=== PATIENT | male | born 1975 | race Caucasian/White ===

== ENCOUNTER 2019-06-09 20:55 | Emergency (ER) | payer BC ==
[~2019-06-09] VITALS: Ht 175.3 cm; Wt 98.9 kg
[2019-06-09 21:46] LABS: BASOPHILS # (AUTO) 0.1 (0.0-0.1); BASOPHILS % 1.1 % (0.0-1.0); EOSINOPHILS # (AUTO) 0.2 (0.0-0.4); EOSINOPHILS % 1.5 % (0.0-6.0); HEMATOCRIT 45.3 % (38.2-49.6); LYMPHOCYTES # (AUTO) 1.4 (1.0-3.2); LYMPHOCYTES % 11.1 % (18.0-39.1); MEAN CORPUSCULAR HEMOGLOBIN 28.3 pg (28-32); MEAN CORPUSCULAR HGB CONC 33.1 g/dL (31-35); MEAN CORPUSCULAR VOLUME 85.5 fL (81-99); MONOCYTES # (AUTO) 0.8 (0.2-0.8); MONOCYTES % 5.9 % (4.4-11.3); NEUTROPHILS # (AUTO) 10.4 (2.1-6.9); NEUTROPHILS % 79.9 % (38.7-80.0); PLATELET COUNT 703 x10e3/uL (140-360); RED CELL DISTRIBUTION WIDTH 13.4 % (11.7-14.4)
[2019-06-09 21:55] LABS: INR 1.11; PROTHROMBIN TIME 14.8 seconds (11.9-14.5)
[2019-06-09 21:56] LABS: PARTIAL THROMBOPLASTIN TIME 35.6 seconds (23.8-35.5)
[2019-06-09 22:03] LABS: ALANINE AMINOTRANSFERASE 24 IU/L (0-55); ALBUMIN 3.7 g/dL (3.5-5.0); ALBUMIN/GLOBULIN RATIO 1.3 (0.8-2.0); ALKALINE PHOSPHATASE 43 IU/L (40-150); ANION GAP 13.6 mmol/L (8-16); BLOOD UREA NITROGEN 20 mg/dL (7-26); BUN/CREATININE RATIO 23 (6-25); CALCIUM 9.2 mg/dL (8.4-10.2); CARBON DIOXIDE 26 mmol/L (22-29); CHLORIDE 104 mmol/L (98-107); CREATINE KINASE 45 IU/L (30-200); CREATININE, SERUM 0.88 mg/dL (0.72-1.25); EST GLOMERULAR FILTRATION RATE > 60 ML/MIN (60-); GLUCOSE 110 mg/dL (74-118); POTASSIUM 3.6 mmol/L (3.5-5.1); SODIUM 140 mmol/L (136-145)
--- NOTE | 2019-06-09 22:13 | Diagnostic Imaging Report ---
EXAMINATION: CHEST SINGLE (PORTABLE) INDICATION: SOB. COMPARISON: None FINDINGS: TUBES and LINES: None. LUNGS: Lungs are well inflated. There is no evidence of pneumonia or pulmonary edema. PLEURA: No pleural effusion or pneumothorax. HEART AND MEDIASTINUM: The cardiomediastinal silhouette is unremarkable. BONES AND SOFT TISSUES: No acute osseous abnormality. UPPER ABDOMEN: No free air under the diaphragm. IMPRESSION: No acute radiographic abnormality. Signed by: Dr. Ravin Lagunas MD on 06/09/2019 10:09 PM
[2019-06-09 22:24] LABS: THYROID STIMULATING HORMONE 2.462 uIU/mL (0.350-4.940)
== END 2019-06-10 00:02 | disposition home or self-care (01) ==
LOC: ER 20:55
DX: R00.2 Palpitations (principal); I47.1 Supraventricular tachycardia; I10 Essential (primary) hypertension; F41.9 Anxiety disorder, unspecified
CPT/HCPCS: 36415; 71045; 80053; 82550; 82553; 84436; 84443; 84479; 84484; 85025; 85610; 85730; 93005; 99284

== ENCOUNTER 2019-10-08 12:20 | Inpatient (IN) | payer SELFPAY ==
[~2019-10-08] VITALS: Ht 177.8 cm; Wt 93.4 kg
--- OUTSIDE RECORDS SUMMARY | 2019-10-08 12:23 | XMS REPORT ---
Author Author [facility] Address Unknown Phone Unavailable Care Team Providers [employer] Custodian Name Role Phone Rachel LILLY Unavailable Unavailable Problems This patient has no known problems. Allergies, Adverse Reactions, Alerts This patient has no known allergies or adverse reactions. Medications This patient has no known medications. Results Test Description Test Time Test Comments Text Results Atomic Results Result Comments CHEST SINGLE (PORTABLE) 2019-06-09 22:08:00 [place] [address] Patient Name: MARLEEN FERNANDEZ MR #: [id number] : 1975 Age/Sex: 44/M Req #: [id number] [facility] Physician: Ordered by: ERICK LILLY MD Report #: [id number] Location: ER Room/Bed: Procedure: [id number] DX/CHEST SINGLE (PORTABLE) Exam Date: 06/09/19 Exam Time: 2135 REPORT STATUS: Signed EXAMINATION: CHEST SINGLE (PORTABLE) INDICATION: SOB. COMPARISON: None FINDINGS: TUBES and LINES: None. LUNGS: Lungs are well inflated. There is no evidence of pneumonia or pulmonary edema. PLEURA: No pleural effusion or pneumothorax. HEART AND MEDIASTINUM: The cardiomediastinal silhouette is unremarkable. BONES AND SOFT TISSUES: No acute osseous abnormality. UPPER ABDOMEN: No free air under the diaphragm. IMPRESSION: No acute radiographic abnormality. Signed by: Dr. Wendy Akbar MD on 06/09/2019 10:09 PM Dictated By: WENDY AKBAR MD 08 Transcribed By: RUBEN on 06/09/192208 COPY TO: ERICK LILLY MD
[2019-10-08] MEDS ORDERED: SODIUM CHLORIDE 0.9% 1000ML 1,000 ML IV STA (12:30)
[2019-10-08 12:59] LABS: BASOPHILS # (AUTO) 0.1 (0.0-0.1); EOSINOPHILS # (AUTO) 0.1 (0.0-0.4); EOSINOPHILS % 0.8 % (0.0-6.0); HEMATOCRIT 49.9 % (38.2-49.6); HEMOGLOBIN 16.6 g/dL (14.0-18.0); LYMPHOCYTES # (AUTO) 1.9 (1.0-3.2); LYMPHOCYTES % 15.6 % (18.0-39.1); MEAN CORPUSCULAR HEMOGLOBIN 28.2 pg (28-32); MEAN CORPUSCULAR HGB CONC 33.3 g/dL (31-35); MEAN CORPUSCULAR VOLUME 84.9 fL (81-99); MONOCYTES # (AUTO) 0.6 (0.2-0.8); MONOCYTES % 4.9 % (4.4-11.3); NEUTROPHILS # (AUTO) 9.4 (2.1-6.9); NEUTROPHILS % 77.4 % (38.7-80.0); PLATELET COUNT 717 x10e3/uL (140-360); RED BLOOD COUNT 5.88 x10e6/uL (4.3-5.7); RED CELL DISTRIBUTION WIDTH 13.4 % (11.7-14.4)
[2019-10-08] MEDS ORDERED: PIPER-TAZ 3.375 GM 50 ML IV SCH (13:00)
[2019-10-08] MEDS ORDERED: METRONIDAZOLE 500MG/NS 100ML 100 ML IV SCH (13:00)
--- NOTE | 2019-10-08 13:26 | Diagnostic Imaging Report ---
EXAMINATION: CHEST SINGLE (NOT PORTABLE) INDICATION: Abdominal pain COMPARISON: None FINDINGS: LINES/TUBES:None LUNGS:The lungs are well-inflated. No focal consolidation or pulmonary edema. PLEURA:No pleural effusion or pneumothorax. MEDIASTINUM:The cardiomediastinal silhouette appears normal in size and shape. BONES/SOFT TISSUES:No acute osseous injury. ABDOMEN:No free air under the diaphragm. IMPRESSION: No focal pneumonia or pulmonary edema. Signed by: Anna Bowman MD on 10/08/2019 1:23 PM
[2019-10-08 13:30] LABS: CLARITY,URINE CLEAR (CLEAR); COLOR,URINE YELLOW (YELLOW)
[2019-10-08 13:31] LABS: BACTERIA,URINE RARE /HPF; BILIRUBIN,URINE NEGATIVE (NEGATIVE); EPITHELIAL CELLS,URINE FEW /LPF; KETONES,URINE NEGATIVE (NEGATIVE); LEUKOCYTE ESTERASE ,URINE NEGATIVE (NEGATIVE); NITRITE,URINE NEGATIVE (NEGATIVE); PROTEIN,URINE DIPSTICK NEGATIVE (NEGATIVE); RBC,URINE 0-5 /HPF (0-5); URINE UROBILINOGEN 0.2 mg/dL (0.2 - 1); WBC,URINE (MAN) 0-5 /HPF (0-5)
[2019-10-08 13:31] LABS: INR 1.1; PARTIAL THROMBOPLASTIN TIME 36.5 seconds (23.8-35.5); PROTHROMBIN TIME 14.9 seconds (11.9-14.5)
[2019-10-08 13:32] LABS: ALANINE AMINOTRANSFERASE 19 IU/L (0-55); ALBUMIN 3.8 g/dL (3.5-5.0); ALBUMIN/GLOBULIN RATIO 1.2 (0.8-2.0); ALKALINE PHOSPHATASE 52 IU/L (40-150); ANION GAP 12.6 mmol/L (8-16); BLOOD UREA NITROGEN 12 mg/dL (7-26); BUN/CREATININE RATIO 15 (6-25); CALCIUM 8.7 mg/dL (8.4-10.2); CARBON DIOXIDE 30 mmol/L (22-29); CHLORIDE 101 mmol/L (98-107); EST GLOMERULAR FILTRATION RATE > 60 ML/MIN (60-); GLUCOSE 97 mg/dL (74-118); LIPASE 25 U/L (8-78); POTASSIUM 3.6 mmol/L (3.5-5.1); SODIUM 140 mmol/L (136-145)
[2019-10-08] MEDS ORDERED: SODIUM CHLORIDE 0.9% 1000ML 1,000 ML IV SCH (13:57)
[2019-10-08] MEDS: MORPHINE SULFATE INJ 4 MG/ML INJ 1ML IV PRN ×2 (14:58→21:24)
[2019-10-08] MEDS: ONDANSETRON HCL INJ 2MG/ML 2ML 2 MG/ML VIAL IV PRN ×2 (14:58→21:24)
--- NOTE | 2019-10-08 15:23 | Consultation ---
DATE OF CONSULTATION: 10/08/2019 REASON FOR CONSULTATION: Appendicitis. DESCRIPTION OF CONSULTATION: The patient is a pleasant, but anxious 44-year-old male who started feeling sick about a week ago with some ill-defined lower abdominal pain, which apparently became more pronounced this morning. The patient went to his primary care physician or a CT scan that revealed an inflamed appendix with small amounts of fluid around the area of the appendix in the cecal region. There was no free air. The patient denied any fever or vomiting. He had a loose bowel movement today. He had no symptoms. He is comfortable. PAST MEDICAL HISTORY: Significant for hypertension. He is taking propranolol. e states that he has lost significant amounts of weight on adiet and he used to weight 300 pounds about a year ago, now he is down to 218 with a BMI of 32.2. The PAST SURGICAL HISTORY: Previous surgeries include an undescended testicle and tonsillectomy. The patient does not drink. Does not smoke. ALLERGIES: HAS NO KNOWN ALLERGIES. REVIEW OF SYSTEMS: Significant for what has been stated. PHYSICAL EXAMINATION: GENERAL: Reveals a 44-year-old male in no acute distress. VITAL SIGNS: Temperature is 98.8, pulse 83, blood pressure 160/103, and respiratory rate 18. HEENT: Reveals a normocephalic head. Supple neck. LUNGS: Clear. HEART: Reveals regular sinus rhythm. ABDOMEN: Reveals a soft abdomen. There is some mild tenderness in the lower side of the abdomen, but there is no rebound. No obviously palpable mass is palpated. Of note is the fact that this patient was examined in a reclining chair in the emergency room because there were no beds available at the time of my examination, where I could put the patient to examine and he was examined in the interview room of the emergency room. EXTREMITIES: Reveal no clubbing, cyanosis, or edema. LABORATORY DATA: [place] [address] with a hematocrit of 50, platelets are 100,000. Chemistries are normal. Coag profile revealed a PTT of 14.9, aPTT of 36 with an INR of 1.1. ASSESSMENT: A 44-year-old male with a week history of abdominal pain with a CT scan consistent with appendicitis with focal perforation. I have reviewed the outside films with our Radiologist here and it appears that he does have an inflamed large appendix with some fluid around the area, but no free perforation or pneumoperitoneum.No drainable collection is seen with [facility] redology staff review of foreign films PLAN: The plan is to admit the patient to the roomwhen is available to keep him n.p.o., give him hydration overnight, and intravenous antibiotics and proceed with surgery in a.m. I have discussed in detail with the patient and his the surgical plans, which include attempted diagnostic laparoscopy and we will attempt to perform laparoscopic appendectomy. If this is not successful, he will need an open appendectomy and/or laparotomy. They are aware that during the laparotomy for this type of appendicitis is always a possibility that we may have to do a colon resection on the right side. They will agree with the plans and the patient is agreeable to them. MD SCOTT Perez/SAFIA /[id number]
[2019-10-08] MEDS: LEVOFLOXACIN 500MG/D5W 100ML 100 ML IV SCH (15:30)
[2019-10-08] MEDS: D5NS/KCL 20MEQ 1,000 ML IV SCH ×2 (16:13→23:59)
[2019-10-08] MEDS ORDERED: NIFEDIPINE ER30 MG PO (16:35)
[2019-10-08] MEDS: PIPER-TAZ 3.375 GM 50 ML IV SCH (19:39)
[2019-10-08] MEDS: METRONIDAZOLE 500MG/NS 100ML 100 ML IV SCH (21:16)
[2019-10-08 22:50] VITALS: BP 149/85
--- NOTE | 2019-10-08 23:01 | NUR ---
Patient arrived to unit from ER. In stable condition, no s/s of distress at this time. VS stable. All safety measures in place. Family at bedside. Will continue to monitor
[2019-10-08 23:19] VITALS: BP 149/85
[2019-10-08 23:22] VITALS: BP 149/85
[2019-10-09] VITALS (7 sets, daily range): BP systolic 141–160; BP diastolic 85–93
[2019-10-09] MEDS: PIPER-TAZ 3.375 GM 50 ML IV SCH ×4 (01:55→20:37)
[2019-10-09] MEDS: METRONIDAZOLE 500MG/NS 100ML 100 ML IV SCH ×4 (03:24→21:51)
[2019-10-09 06:23] LABS: BASOPHILS # (AUTO) 0.1 (0.0-0.1); EOSINOPHILS # (AUTO) 0.3 (0.0-0.4); EOSINOPHILS % 2.3 % (0.0-6.0); HEMATOCRIT 45.4 % (38.2-49.6); HEMOGLOBIN 14.9 g/dL (14.0-18.0); LYMPHOCYTES # (AUTO) 1.8 (1.0-3.2); LYMPHOCYTES % 15.9 % (18.0-39.1); MEAN CORPUSCULAR HGB CONC 32.8 g/dL (31-35); MEAN CORPUSCULAR VOLUME 85.3 fL (81-99); MONOCYTES # (AUTO) 0.8 (0.2-0.8); MONOCYTES % 7.1 % (4.4-11.3); NEUTROPHILS # (AUTO) 8.3 (2.1-6.9); NEUTROPHILS % 73.4 % (38.7-80.0); PLATELET COUNT 546 x10e3/uL (140-360); RED BLOOD COUNT 5.32 x10e6/uL (4.3-5.7); RED CELL DISTRIBUTION WIDTH 13.5 % (11.7-14.4)
[2019-10-09 06:42] LABS: ANION GAP 9.1 mmol/L (8-16); BLOOD UREA NITROGEN 11 mg/dL (7-26); BUN/CREATININE RATIO 13 (6-25); CALCIUM 8.3 mg/dL (8.4-10.2); CARBON DIOXIDE 30 mmol/L (22-29); CHLORIDE 107 mmol/L (98-107); CREATININE, SERUM 0.86 mg/dL (0.72-1.25); EST GLOMERULAR FILTRATION RATE > 60 ML/MIN (60-); GLUCOSE 103 mg/dL (74-118); POTASSIUM 4.1 mmol/L (3.5-5.1); SODIUM 142 mmol/L (136-145)
--- NOTE | 2019-10-09 06:59 | NUR ---
Bedside report given to day nurse. Patient resting in bed, no s/s of distress or c/o pain at this time. All safety measures in place. Family at bedside.
--- NOTE | 2019-10-09 07:00 | NUR ---
bedside shift report received pt in stable condition, denies pain at this time, ivf infusing to l ac 18g no ss of infiltraton noted,updated on poc voiced understanding, call light in reach will continue to monitor.
--- NOTE | 2019-10-09 08:40 | NUR ---
GAVE PACKET OF INFORMATION WITH [employer] [employer] FOR ASSISTANCE WITH LOW TO NO INCOME TO PATIENT. RESOURCES THAT PATIENT MAY BE ABLE TO FOLLOW UP UPON DISCHARGE. PT EDUCATED ON EACH RESOURCE AND UNDERSTANDING HOW TO FOLLOW UP TO SEE IF QUALIFIED FOR EACH RESOURCE.
[2019-10-09] MEDS: D5NS/KCL 20MEQ 1,000 ML IV SCH ×3 (08:52→22:49)
[2019-10-09] MEDS ORDERED: BUPIVACAINE 0.25% 30ML SDV INJ ONE (09:30)
--- NOTE | 2019-10-09 09:30 | NUR ---
DOWN TO SX LEFT IN STABLE CONDITION.
[2019-10-09] MEDS ORDERED: ACETAMINOPHEN 1000 MG/100 ML IV PRN (13:45)
[2019-10-09] MEDS: ONDANSETRON HCL INJ 2MG/ML 2ML 2 MG/ML VIAL IV PRN (13:52)
[2019-10-09] MEDS ORDERED: ACETAMINOPHEN 1000 MG/100 ML IV ONE (13:59)
[2019-10-09] MEDS ORDERED: ROCURONIUM BROMIDE 10 MG/ML 5ML VIAL ONE (13:59)
[2019-10-09] MEDS ORDERED: ONDANSETRON HCL INJ 2MG/ML 2ML 2 MG/ML VIAL ONE (13:59)
[2019-10-09] MEDS ORDERED: LIDOCAINE HCL 2% JELLY 5 ML TUBE ONE (13:59)
[2019-10-09] MEDS ORDERED: PROPOFOL IV EMULSION 10 MG/ML 20 ML VIAL ONE (13:59)
[2019-10-09] MEDS ORDERED: NEOSTIGMINE 1 MG/ML 10ML VIAL ONE (13:59)
[2019-10-09] MEDS ORDERED: LIDOCAINE HCL 2% LOCAL INJ 5 ML SDV VIAL INJ ONE (13:59)
[2019-10-09] MEDS ORDERED: GLYCOPYRROLATE INJ 0.2 MG/ML VIAL ONE (13:59)
[2019-10-09] MEDS ORDERED: SEVOFLURANE INHAL SOLN 250 ML PEN BTL ONE (13:59)
[2019-10-09] MEDS ORDERED: FENTANYL CITRATE/PF 100MCG/2 ML INJ ONE ×2 (14:14→18:19)
--- NOTE | 2019-10-09 14:48 | Operative Report ---
DATE OF PROCEDURE: 10/09/2019 SURGEON: Fermín Bentley MD PREOPERATIVE DIAGNOSIS: Localized perforated appendicitis. POSTOPERATIVE DIAGNOSIS: Pending final path report. PROCEDURE PERFORMED: Attempted laparoscopic appendectomy converted t5p laparotomy Right hemicolectomy ANESTHESIA: General. ESTIMATED BLOOD LOSS: Minimal. DRAINS: None. COMPLICATIONS: None. INDICATION AND FINDINGS: A 44-year-old male, admitted, complaining of a week history of abdominal pain. The patient was seen by his primary care physician, Dr. Russell, who ordered a CT scan of the abdomen and that study showed an inflammatory process in the right lower quadrant. The appendix could not be seen, it was not clear what the source of the process while there was localized fluid collection in the area. The patient then subsequently was admitted to the hospital for further treatment after discussing the indications for surgery and the possibility of having to perform an open procedure including a bowel resection. The patient and his agreed and then we too laparoscopy and possible laparotomy. INTRAOPERATIVE FINDINGS: After he was placed under general anesthesia, there was a palpable mass in the right lower quadrant. An attempted laparoscopy was performed and revealed an inflammatory process in the right lower quadrant. The loop of distal terminal ileum was stuck to the mass, which occupied the cecum. We did not see a definite appendix in the area, which was also stuck to the lateral wall of the pelvis. After we attempted to mobilize the cecum, we identified the appendix, it became clear that this was not possible due to severity of the process and we decided to open up the patient. A tailor made incision was then made after we had localized the area of the cecum during laparoscopy and then we made a transverse right lower quadrant incision slightly inferior to the umbilicus that was where the process was located. We entered the abdomen through a muscle-splitting incision and then the terminal ileum ,cecum and mass were easily delivered into the wound as they had previously been mobilized during the laparoscopy, attempting to find the appendix. At this point, we decided that it was necessary to perform a right hemicolectomy and then we transected the ileum about 6 inches proximal to the mass and then the colon was mobilized and was transected in the area of the right colon inferior to the hepatic flexure. Both ends of the bowel were transected between TA-75 stapler and then the mesoappendix was handled with the EnSeal cautery instrument and the ileocolic vessels were then tied with 2-0 silk twice. After we detached the specimen, we then performed a [id number] functional end-to-end anastomosis by anastomosing the antimesenteric side of the small bowel to the right colon. The rent was then closed using firing of the TA-60 stapler, then the staple line was reinforced using 3-0 silk. Stitch was placed distal to the staple line to decrease tension. The anastomosis was patent wide. There was good blood flow and good color of the intestine. We copiously irrigated the right lower quadrant and then after the sponge and instrument count was correct, we placed the omentum over the anastomosis and then we closed the wounds in layers using 0 Vicryl for the peritoneum and internal oblique muscle and then the rectus sheath part of which had been opened as well as external oblique aponeurosis was closed using interrupted running #1 Vicryl. The wound irrigated. Bleeding points if any cauterized and the wound was closed in layers using for the subcutaneous tissue 2-0 chromic and 2-0 Vicryl for the subcutaneous fat. The skin was closed using mesfin in all ports except for the umbilical port that was closed using #0 Vicryl and then 3-0 silk. Sterile dressing was applied. The patient tolerated the procedure well, was taken to recovery room in stable condition. The patient's family was informed of the intraoperative findings. All questions were answered. MD SCOTT Perez/SAFIA /[id number] RUTH
[2019-10-09] MEDS: SODIUM CHLORIDE 0.9% 250ML IRRIG IR SCH ×3 (15:16→20:43)
[2019-10-09] MEDS: LEVOFLOXACIN 500MG/D5W 100ML 100 ML IV SCH (15:30)
--- NOTE | 2019-10-09 16:00 | NUR ---
BACK TO RM FROM SX, PT IN STABLE CONDITION, NG L NARE TO LCWS, DSG TO 5 TROCHAR SITES ON ABDOMEN C/D/I, TORRES TO GRAVITY WITH YELLOW URINE NOTED, DENIES PAIN AT THIS TIME, CALL LIGHT IN REACH WILL CONTINUE TO MONITOR
[2019-10-09] MEDS ORDERED: ARTIFICIAL TEARS (OPTH) 15 ML BTL OU PRN (17:00)
[2019-10-09] MEDS: MORPHINE SULFATE INJ 4 MG/ML INJ 1ML IV PRN (17:28)
[2019-10-09] MEDS ORDERED: MIDAZOLAM HCL 2 MG/2 ML VIAL ONE (18:19)
--- NOTE | 2019-10-09 19:18 | NUR ---
WALKING ROUNDS PERFORMED, RECEIVED PT LAYING SEMI FOWLERS IN BED, AAOX3, RR EVEN AND NON-LABORED, O2 BY NC AT 2L. NO S/SX OF DISTRESS NOTED. NGT TO (L) NARE CONNECTED TO LCS. LEFT PT LAYING SEMI FOWLERS IN BED, BED IN LOW LOCKED POSITION, SIDE RAILS UPX2, CALL LIGHT AND PHONE WITHIN REACH.
[2019-10-09] MEDS: TOBRAMYCIN/DEXAMETHASONE(OPTH) 5 ML BTL OP SCH (20:33)
[2019-10-10] VITALS (9 sets, daily range): BP systolic 158–173; BP diastolic 92–107
--- NOTE | 2019-10-10 01:22 | NUR ---
PT ASSISTED TO HARDBACK CHAIR. BED LINENS CHANGED. PT ASSISTED BACK TO BED. LEFT LAYING SEMI FOWLERS IN BED, BED IN LOW LOCKED POSITION, SIDE RAILS UPX2, CALL LIGHT AND PHONE WITHIN REACH.
[2019-10-10] MEDS: PIPER-TAZ 3.375 GM 50 ML IV SCH ×4 (02:11→20:18)
[2019-10-10] MEDS: SODIUM CHLORIDE 0.9% 250ML IRRIG IR SCH ×6 (02:11→20:23)
[2019-10-10] MEDS: D5NS/KCL 20MEQ 1,000 ML IV SCH (02:12)
[2019-10-10] MEDS: METRONIDAZOLE 500MG/NS 100ML 100 ML IV SCH ×4 (03:31→21:25)
--- NOTE | 2019-10-10 05:23 | NUR ---
NGT TUBE NOTED TO BE NO LONGER TAPED TO NOSE. NGT STILL IN SAME PLACE, REPLACED TAPE TO SECURE NGT IN PLACE. FLUSHED AIR INTO NGT AND AUSCULTATED BUBBLES BELOW THE STERNUM. WILL CONTINUE TO MONITOR NGT.
[2019-10-10] MEDS: ONDANSETRON HCL INJ 2MG/ML 2ML 2 MG/ML VIAL IV PRN (05:29)
[2019-10-10] MEDS: MORPHINE SULFATE INJ 4 MG/ML INJ 1ML IV PRN (06:08)
[2019-10-10 06:13] LABS: BASOPHILS # (AUTO) 0.1 (0.0-0.1); BASOPHILS % 0.9 % (0.0-1.0); EOSINOPHILS # (AUTO) 0.1 (0.0-0.4); EOSINOPHILS % 0.9 % (0.0-6.0); HEMATOCRIT 46.3 % (38.2-49.6); HEMOGLOBIN 15.1 g/dL (14.0-18.0); LYMPHOCYTES # (AUTO) 1.3 (1.0-3.2); MEAN CORPUSCULAR HEMOGLOBIN 27.7 pg (28-32); MEAN CORPUSCULAR HGB CONC 32.6 g/dL (31-35); MONOCYTES # (AUTO) 1.1 (0.2-0.8); MONOCYTES % 8.2 % (4.4-11.3); NEUTROPHILS # (AUTO) 11.2 (2.1-6.9); NEUTROPHILS % 80.6 % (38.7-80.0); PLATELET COUNT 690 x10e3/uL (140-360); RED BLOOD COUNT 5.45 x10e6/uL (4.3-5.7); RED CELL DISTRIBUTION WIDTH 13.4 % (11.7-14.4)
[2019-10-10 06:36] LABS: ANION GAP 9.9 mmol/L (8-16); BLOOD UREA NITROGEN 9 mg/dL (7-26); BUN/CREATININE RATIO 11 (6-25); CALCIUM 8.2 mg/dL (8.4-10.2); CARBON DIOXIDE 26 mmol/L (22-29); CHLORIDE 107 mmol/L (98-107); EST GLOMERULAR FILTRATION RATE > 60 ML/MIN (60-); POTASSIUM 3.9 mmol/L (3.5-5.1); SODIUM 139 mmol/L (136-145)
[2019-10-10 06:51] LABS: GLUCOSE 150 mg/dL (74-118)
[2019-10-10] MEDS ORDERED: MORPHINE SULFATE INJ 4 MG/ML INJ 1ML IV PRN (10:00)
[2019-10-10] MEDS: TOBRAMYCIN/DEXAMETHASONE(OPTH) 5 ML BTL OP SCH ×3 (10:02→20:18)
[2019-10-10] MEDS ORDERED: MORPHINE SULFATE 2 MG/ML SYR 1ML IV PRN (10:30)
[2019-10-10] MEDS: SODIUM CHLORIDE 0.9% 1000ML 1,000 ML IV SCH ×2 (12:22→20:00)
--- NOTE | 2019-10-10 14:30 | NUR ---
C/O SECRETIONS. REPOSITIONED, PATIENT STATES HE WILL CLEAN OUT HIS NOSE AND SEE IF HE FEELS BETTER
--- NOTE | 2019-10-10 16:00 | NUR ---
PATIENT DOES NOT FEEL BETTER, SO DR. Teresa TREJO OFFICE PAGED. DR. Cora TREJO APPEARED ON UNIT, AND MADE NEW ORDERS FOR PT TO GET SUCTIONED BY PT AND AFRIN NOSE SPRAY AND AMBULATE
[2019-10-10] MEDS: LEVOFLOXACIN 500MG/D5W 100ML 100 ML IV SCH (16:28)
[2019-10-10] MEDS: OXYMETAZOLINE HCL 0.05% NAS 1 SPRAY BTL SCH (17:14)
--- NOTE | 2019-10-10 18:58 | NUR ---
WALKING ROUNDS PERFORMED, RECEIVED PT LAYING SEMI FOWLERS IN BED, AAOX3, RR EVEN AND NON-LABORED, ON ROOM AIR. NGT TO (L) NARE DAY SHIFT CONNECTING PATIENT BACK TO SUCTION. LEFT PT LAYING SEMI FOWLERS IN BED, BED IN LOW LOCKED POSITION, SIDE RAILS UPX2, CALL LIGHT AND PHONE WITHIN REACH.
--- NOTE | 2019-10-10 20:27 | NUR ---
PAGE PLACED FOR MD Cora TREJO CONCERNING PT STATING THAT MD Teresa TREJO TOLD HIM THAT HE WOULD HAVE A SUPPOSITORY THIS EVENING. NO SUPPOSITORY ORDERED. WAITING FOR CALLBACK.
--- NOTE | 2019-10-10 20:32 | NUR ---
MD Brett RTEJO STATES THAT HE DID NOT TELL THE PATIENT HE WOULD START A SUPPOSITORY ON THE PATIENT THAT THERE WAS NO NEED. WILL RELAY MESSAGE TO PATIENT.
[2019-10-10] MEDS: HYDRALAZINE HCL 20 MG/ML VIAL IV PRN (22:20)
--- NOTE | 2019-10-10 22:26 | NUR ---
PT AMBULATING IN [place] WITH FAMILY AT SIDE. STEADY GAIT NOTED.
[2019-10-10] MEDS: ACETAMINOPHEN 1000 MG/100 ML IV PRN (23:10)
[2019-10-11] VITALS (10 sets, daily range): BP systolic 153–175; BP diastolic 90–107
--- NOTE | 2019-10-11 01:20 | NUR ---
PT AMBULATING IN [place] WITH FAMILY AT SIDE. STEADY GAIT NOTED.
[2019-10-11] MEDS: SODIUM CHLORIDE 0.9% 250ML IRRIG IR SCH ×7 (01:42→21:45)
[2019-10-11] MEDS: PIPER-TAZ 3.375 GM 50 ML IV SCH ×4 (01:42→20:06)
[2019-10-11] MEDS: METRONIDAZOLE 500MG/NS 100ML 100 ML IV SCH ×4 (03:12→20:51)
--- NOTE | 2019-10-11 04:10 | NUR ---
PT AMBULATING IN [place] WITH FAMILY AT SIDE. STEADY GAIT NOTED. CHANGED NGT SUCTION CANISTER AND TUBING.
[2019-10-11] MEDS: HYDRALAZINE HCL 20 MG/ML VIAL IV PRN (05:28)
[2019-10-11] MEDS: ACETAMINOPHEN 1000 MG/100 ML IV PRN ×2 (05:29→20:51)
[2019-10-11] MEDS: SODIUM CHLORIDE 0.9% 1000ML 1,000 ML IV SCH ×3 (06:32→23:00)
[2019-10-11] MEDS: TOBRAMYCIN/DEXAMETHASONE(OPTH) 5 ML BTL OP SCH ×3 (09:00→20:51)
[2019-10-11] MEDS: OXYMETAZOLINE HCL 0.05% NAS 1 SPRAY BTL SCH ×2 (09:00→20:51)
[2019-10-11 09:54] LABS: ANION GAP 11.7 mmol/L (8-16); BLOOD UREA NITROGEN 12 mg/dL (7-26); BUN/CREATININE RATIO 18 (6-25); CALCIUM 8.5 mg/dL (8.4-10.2); CARBON DIOXIDE 26 mmol/L (22-29); CHLORIDE 108 mmol/L (98-107); CREATININE, SERUM 0.66 mg/dL (0.72-1.25); EST GLOMERULAR FILTRATION RATE > 60 ML/MIN (60-); GLUCOSE 101 mg/dL (74-118); POTASSIUM 3.7 mmol/L (3.5-5.1); SODIUM 142 mmol/L (136-145)
[2019-10-11 10:21] LABS: BASOPHILS # (AUTO) 0.1 (0.0-0.1); BASOPHILS % 0.9 % (0.0-1.0); EOSINOPHILS # (AUTO) 0.1 (0.0-0.4); HEMATOCRIT 45.9 % (38.2-49.6); HEMOGLOBIN 14.9 g/dL (14.0-18.0); LYMPHOCYTES # (AUTO) 1.3 (1.0-3.2); LYMPHOCYTES % 9.9 % (18.0-39.1); MEAN CORPUSCULAR HEMOGLOBIN 28.1 pg (28-32); MEAN CORPUSCULAR HGB CONC 32.5 g/dL (31-35); MEAN CORPUSCULAR VOLUME 86.4 fL (81-99); MONOCYTES # (AUTO) 0.9 (0.2-0.8); NEUTROPHILS # (AUTO) 10.2 (2.1-6.9); NEUTROPHILS % 80.6 % (38.7-80.0); PLATELET COUNT 692 x10e3/uL (140-360); RED BLOOD COUNT 5.31 x10e6/uL (4.3-5.7); RED CELL DISTRIBUTION WIDTH 13.5 % (11.7-14.4)
--- NOTE | 2019-10-11 10:32 | Progress Note ---
DATE: 10/11/2019 CHIEF COMPLAINT/HISTORY OF PRESENT ILLNESS: This is a 44-year-old white man, who was initially admitted with a diagnosis of localized perforated appendicitis. Initially, laparoscopic appendectomy was attempted but later converted to appendectomy with laparotomy, right hemicolectomy. The patient has a nasogastric tube in place. The patient is experiencing flatus today. The patient states his pain is well controlled. The patient denies any nausea or vomiting. The patient voices no complaints. The patient had blood work done today and was found to have a BUN and creatinine of 12 and 0.66 respectively. The patient's potassium is 3.7. On October 10, 2019, the patient's white blood cell count is 13,900 with 80% segmented neutrophils. Hemoglobin 15.1 g/dL. REVIEW OF SYSTEMS: As per HPI. PHYSICAL EXAMINATION: GENERAL: He is awake, alert, and fully oriented. Family is at bedside. VITAL SIGNS: Blood pressure is 156 108, pulse 92, respiratory rate is 18, temperature 99.2, oxygen saturation 96% on room air. BMI is 29. INTEGUMENT: Skin is warm and dry. No pallor, jaundice, or diaphoresis. HEENT: Anicteric sclerae. Moist mucous membranes. NECK: Supple. CARDIOVASCULAR: Tachycardic rate with regular rhythm. The patient has S4 gallop. LUNGS: No rales. No rhonchi or wheezes. ABDOMEN: Mildly obese. The patient does have bowel sounds. No tenderness appreciated. The surgical incision is currently dressed. EXTREMITIES: No edema or deformity. NEUROLOGIC: Intact. DIAGNOSES: 1. Status post laparotomy with right hemicolectomy/appendectomy to repair perforated appendicitis. 2. Hypertensive heart disease. 3. Mild obesity. PLAN: 1. Follow complete blood count. 2. We will advance diet as per General Surgery orders. 3. Follow electrolytes. 4. We will decrease intravenous saline from 125 to 75 mL an hour because of his hypertension. I spent 30 minutes in the care of the patient. MD PILI Barber/SAFIA /[id number] RUTH
[2019-10-12] VITALS (9 sets, daily range): BP systolic 120–174; BP diastolic 80–112
[2019-10-12] MEDS: PIPER-TAZ 3.375 GM 50 ML IV SCH ×4 (01:51→20:20)
[2019-10-12] MEDS: METRONIDAZOLE 500MG/NS 100ML 100 ML IV SCH ×4 (03:27→21:04)
[2019-10-12 07:04] LABS: BASOPHILS # (AUTO) 0.1 (0.0-0.1); EOSINOPHILS # (AUTO) 0.5 (0.0-0.4); EOSINOPHILS % 4.1 % (0.0-6.0); HEMATOCRIT 44.6 % (38.2-49.6); HEMOGLOBIN 14.5 g/dL (14.0-18.0); LYMPHOCYTES # (AUTO) 1.6 (1.0-3.2); LYMPHOCYTES % 13.9 % (18.0-39.1); MEAN CORPUSCULAR HEMOGLOBIN 27.6 pg (28-32); MEAN CORPUSCULAR HGB CONC 32.5 g/dL (31-35); MONOCYTES # (AUTO) 0.9 (0.2-0.8); MONOCYTES % 7.8 % (4.4-11.3); NEUTROPHILS # (AUTO) 8.1 (2.1-6.9); NEUTROPHILS % 72.3 % (38.7-80.0); PLATELET COUNT 309 x10e3/uL (140-360); RED BLOOD COUNT 5.25 x10e6/uL (4.3-5.7); RED CELL DISTRIBUTION WIDTH 13.3 % (11.7-14.4)
[2019-10-12 07:24] LABS: ALANINE AMINOTRANSFERASE 11 IU/L (0-55); ALBUMIN 2.8 g/dL (3.5-5.0); ALKALINE PHOSPHATASE 36 IU/L (40-150); ANION GAP 11.4 mmol/L (8-16); BLOOD UREA NITROGEN 13 mg/dL (7-26); BUN/CREATININE RATIO 19 (6-25); CALCIUM 8.1 mg/dL (8.4-10.2); CARBON DIOXIDE 25 mmol/L (22-29); CHLORIDE 109 mmol/L (98-107); CREATININE, SERUM 0.67 mg/dL (0.72-1.25); EST GLOMERULAR FILTRATION RATE > 60 ML/MIN (60-); GLUCOSE 87 mg/dL (74-118); POTASSIUM 3.4 mmol/L (3.5-5.1); SODIUM 142 mmol/L (136-145)
[2019-10-12] MEDS: OXYMETAZOLINE HCL 0.05% NAS 1 SPRAY BTL SCH ×2 (08:16→21:00)
[2019-10-12] MEDS: HYDRALAZINE HCL 20 MG/ML VIAL IV PRN (08:16)
[2019-10-12] MEDS: TOBRAMYCIN/DEXAMETHASONE(OPTH) 5 ML BTL OP SCH ×3 (08:16→21:00)
[2019-10-12] MEDS ORDERED: POTASSIUM CHLORIDE 10MEQ EA PO ONE (10:15)
[2019-10-12] MEDS ORDERED: NIFEDIPINE PO SCH (10:15)
[2019-10-12] MEDS ORDERED: POTASSIUM CHLORIDE 20 MEQ TAB CR PO ONE (10:30)
[2019-10-12] MEDS ORDERED: LORAZEPAM 0.5 MG TAB PO PRN (10:45)
[2019-10-12] MEDS ORDERED: HYDROCODONE/APAP 5MG-325MG TAB PO PRN (10:45)
[2019-10-12] MEDS ORDERED: LORAZEPAM 0.5 MG TAB PO ONE (10:45)
--- NOTE | 2019-10-12 11:10 | Progress Note ---
DATE: 10/12/2019 CHIEF COMPLAINT/HISTORY OF PRESENT ILLNESS: This is a 44-year-old white man, whose primary treating diagnosis is recent laparotomy with appendectomy and right hemicolectomy to repair perforated appendicitis. The patient tolerated the surgery quite well. The patient states that he has been tolerating ice chips overnight. His main issue is anxiety. The patient in the past on diazepam, it was somewhat helpful for his anxiety, but it caused him to be excessively somnolent. The patient also states he does not want to receive intravenous morphine because it is too sedating. Blood work today reveals a white blood cell count of 11,200 with 72% segmenters while hemoglobin is 14.5 g/dL. The patient's chemistries today reveal potassium is 3.1. Sodium is 142. The patient's BUN and creatinine 13 and 0.67 respectively. REVIEW OF SYSTEMS: As per HPI. PHYSICAL EXAMINATION: GENERAL: This man is awake. He is alert. He is fully oriented, in no distress. is at the bedside. VITAL SIGNS: Blood pressure is 172/108, pulse is 76, respiratory rate is 16, temperature 97.3, and oxygen saturation 98% on room air. INTEGUMENT: Skin is warm and dry. No pallor, jaundice, or diaphoresis. HEENT: Anterior sclerae. Moist mucous membranes. NECK: Supple. CARDIOVASCULAR: Regular rate and rhythm with an S4 gallop. LUNGS: No rales. No rhonchi or wheezes. ABDOMEN: Mildly obese. Normal bowel sounds in all four quadrants. Nontender. EXTREMITIES: No edema or deformity. NEUROLOGIC: Intact. On exam, he is awake, alert, and fully oriented. DIAGNOSES: 1. Status post laparotomy with appendectomy and right hemicolectomy. 2. Repair perforated appendicitis. 3. Hypertensive heart disease. 4. Mild obesity, BMI 30. 5. Anxiety. PLAN: 1. Stop intravenous fluids since the patient's blood pressure is increasing. 2. Start oral home blood pressure medications. 3. Discontinue intravenous morphine. 4. Start oral hydrocodone in the form of [place] 5/325 mg every 4 hours p.r.n. pain. 5. Replete potassium level. 6. We will order lorazepam 0.5 mg now and every 6 hours as needed for anxiety. 7. May consider adding a second blood pressure agent if his blood pressure continues to be elevated. I spent 30 minutes in the care of this patient. MD PILI Barber/SAFIA /[id number] RUTH
[2019-10-12] MEDS: NIFEDIPINE CR 30 MG TAB PO SCH (11:38)
[2019-10-12] MEDS: HYDROCODONE/APAP 7.5MG-325MG 1 EA TAB PO PRN ×2 (14:19→22:09)
--- NOTE | 2019-10-12 19:19 | NUR ---
Report given to oncoming nurse of patient's status. No s/s of acute distress noted. Side rails upx2, call light within reach.
[2019-10-13 01:01] VITALS: BP 143/89
[2019-10-13] MEDS: PIPER-TAZ 3.375 GM 50 ML IV SCH ×3 (02:41→14:23)
[2019-10-13] MEDS: METRONIDAZOLE 500MG/NS 100ML 100 ML IV SCH (03:22)
[2019-10-13 05:54] VITALS: BP 142/89
[2019-10-13 06:48] LABS: BASOPHILS # (AUTO) 0.1 (0.0-0.1); BASOPHILS % 1.2 % (0.0-1.0); EOSINOPHILS # (AUTO) 0.5 (0.0-0.4); EOSINOPHILS % 4.2 % (0.0-6.0); HEMATOCRIT 43.8 % (38.2-49.6); HEMOGLOBIN 14.8 g/dL (14.0-18.0); LYMPHOCYTES # (AUTO) 1.6 (1.0-3.2); LYMPHOCYTES % 13.1 % (18.0-39.1); MEAN CORPUSCULAR HEMOGLOBIN 28.4 pg (28-32); MEAN CORPUSCULAR HGB CONC 33.8 g/dL (31-35); MEAN CORPUSCULAR VOLUME 83.9 fL (81-99); MONOCYTES # (AUTO) 0.9 (0.2-0.8); MONOCYTES % 7.7 % (4.4-11.3); NEUTROPHILS # (AUTO) 8.4 (2.1-6.9); NEUTROPHILS % 70.3 % (38.7-80.0); PLATELET COUNT 677 x10e3/uL (140-360); RED BLOOD COUNT 5.22 x10e6/uL (4.3-5.7); RED CELL DISTRIBUTION WIDTH 13.3 % (11.7-14.4)
--- NOTE | 2019-10-13 07:20 | NUR ---
Received patient this morning, alert and responsive, no distress, call light within reach, rounds completed, will monitor.
[2019-10-13 07:21] LABS: ANION GAP 9.4 mmol/L (8-16); BLOOD UREA NITROGEN 7 mg/dL (7-26); BUN/CREATININE RATIO 9 (6-25); CALCIUM 8.1 mg/dL (8.4-10.2); CARBON DIOXIDE 27 mmol/L (22-29); CHLORIDE 107 mmol/L (98-107); CREATININE, SERUM 0.74 mg/dL (0.72-1.25); EST GLOMERULAR FILTRATION RATE > 60 ML/MIN (60-); GLUCOSE 99 mg/dL (74-118); POTASSIUM 3.4 mmol/L (3.5-5.1); SODIUM 140 mmol/L (136-145)
[2019-10-13 07:45] VITALS: BP 144/91
--- NOTE | 2019-10-13 08:39 | NUR ---
Rounds by Dr. Teresa Perez and to upgrade diet to GI soft and D/C Flagyl
[2019-10-13] MEDS: NIFEDIPINE CR 30 MG TAB PO SCH (08:40)
[2019-10-13] MEDS: TOBRAMYCIN/DEXAMETHASONE(OPTH) 5 ML BTL OP SCH ×2 (08:40→14:39)
[2019-10-13] MEDS: OXYMETAZOLINE HCL 0.05% NAS 1 SPRAY BTL SCH (08:40)
[2019-10-13] MEDS: HYDROCODONE/APAP 7.5MG-325MG 1 EA TAB PO PRN (08:44)
[2019-10-13] MEDS: ONDANSETRON HCL INJ 2MG/ML 2ML 2 MG/ML VIAL IV PRN (08:44)
--- NOTE | 2019-10-13 09:05 | Progress Note ---
DATE: 10/10/2019 SUBJECTIVE: The patient complains of incisional pain, but his pain is overall in good control. No nausea or vomiting. OBJECTIVE: VITAL SIGNS: T-max is 100.7. Current temperature at the time of the report is 98.8 orally, pulse is 77, respiratory rate is 21, pulse symmetry shows 94% saturation on room air, and blood pressure is 160/92. ABDOMEN: Examination of the abdomen reveals no distention. Dressing is dry. Bowel sounds are very hypoactive. NG tube reveals 125 of food since insertion of surgery. There is excellent urinary output. LABORATORY DATA: Laboratories reveals a white count of 14, hematocrit of 46, and platelet count of 690. Electrolytes are normal. GFR is normal. Glucose is 150. ASSESSMENT: Status post laparotomy and right hemicolectomy. The patient is stable. His blood pressure is somewhat elevated. PLAN: The plan is to remove the Garcia catheter, keep n.p.o., give him IV fluids, mobilized, use incentive spirometer. At this point, the NG tube is not ready to be removed. MD SCOTT Perez/SAFIA /[id number]
[2019-10-13] MEDS ORDERED: POTASSIUM CHLORIDE 20 MEQ TAB CR PO SCH (09:50)
[2019-10-13 10:08] VITALS: BP 144/91
[2019-10-13 11:39] VITALS: BP 134/83
--- NOTE | 2019-10-13 13:41 | NUR ---
Nutrition Screen Note RD Recommendation for Physician: -ADAT to GI soft per MD. Plan of Care: RD following, monitoring for tolerance and adequacy Nutrition reason for involvement: Early LOS Primary Diagnose(s): Appendicitis PMH: Ht: in Wt:lb BMI: kg/m2 IBW:lb RD Assessment: (10/12) 44 YOM admitted for appendicitis who had initially laparoscopic appendectomy was attempted but later converted to appendectomy with laparotomy, right hemicolectomy. Pt was seen resting in bed, at bedside. Pt has been advanced to a GI soft diet. He reported he still has some nausea but denied C/D/chewing or swallowing issues as well as any food allergies. Pt had no other questions or concerns. Possible d/c today. Chart reviewed. Labs and meds reviewed. Will continue to monitor. Current Diet: Gi soft Malnutrition Evaluation (10/12) The patient does not meet criteria for a specified degree of malnutrition at this time. Will re-evaluate at follow-up as appropriate. Diet Education Needs Assessment: Diet education not indicated. Diet Adequacy: Meeting calorie needs, Meeting protein needs- pt was advanced to a GI soft diet Nutrition Care Level: low Signed: Shantal Johnson RD, STEVIE Addendum: 10/13/19 at 1344 by Shantal Johnson DIET PMH: Significant for hypertension. Ht: 70 in Wt: 206 lb BMI: 29.6 kg/m2 IBW:166 lb
[2019-10-13 15:42] VITALS: BP 135/86
--- NOTE | 2019-10-13 17:38 | NUR ---
Patient had GI soft diet and tolerated well, no N/V, no distress, OOB and ambulating. Possible discharge today pending review by surgeon
== END 2019-10-13 18:50 | disposition home or self-care (01) | DRG 331 ==
LOC: ER 12:20 → ERHOLD 13:57 → MED/SURG 22:58
PROC: 0WJG4ZZ Inspection of Peritoneal Cavity, Percutaneous Endoscopic Approach (ICD-10-PCS; 2019-10-09)
PROC: 0DTJ0ZZ Resection of Appendix, Open Approach (ICD-10-PCS; principal; 2019-10-09 11:00)
PROC: 0DTF0ZZ Resection of Right Large Intestine, Open Approach (ICD-10-PCS; 2019-10-09 11:00)
DX: K35.33 Acute appendicitis with perforation, localized peritonitis, and gangrene, with abscess (principal); I10 Essential (primary) hypertension; E66.9 Obesity, unspecified; F41.9 Anxiety disorder, unspecified; I11.0 Hypertensive heart disease with heart failure; Z68.32 Body mass index [BMI] 32.0-32.9, adult
CPT/HCPCS: 36415; 71045; 80048; 80053; 81001; 82948; 83690; 85025; 85610; 85730; 86850; 86900; 87086; 88307; 93005; 99284; J0360; J1956; J2001; J2250; J2270; J2405; J2543; J2710; J3010; J7030